=== PATIENT | female | born 1995 | race African-American/Black ===

== ENCOUNTER 2021-05-27 23:57 | Inpatient (IN) ==
[2021-05-27] MEDS ORDERED: LACTATED RINGERS 1,000 ML IV STA (23:59)
[2021-05-27] MEDS ORDERED: LACTATED RINGERS 2,000 ML IV STA (23:59)
[2021-05-27] MEDS ORDERED: DIPHTHERIA/TETANUS ADULT VACCINE 0.5 ML SYRINGE IM ONE (23:59)
[2021-05-28 00:22] LABS: Basophils # 0.1 10*3/uL (0.0-0.2); Basophils % 0.4 % (0.0-0.8); Eosinophils # 0.1 10*3/uL (0.0-0.87); Eosinophils % 0.5 % (0.00-10.9); Hematocrit 43.6 VOL% (35.7-47.0); Immature Granulocytes % 2.1 %; Immature Granulocytes Absolute 0.35 #; Lymphocytes # 3.6 10*3/uL (1.4-4.0); Lymphocytes % 22.2 % (21.3-54.2); Mean Corpuscular HGB Conc 34.4 GM/DL (32-36); Mean Corpuscular Volume 91.2 FL (87-102); Mean Platelet Volume 10.7 FL (9.6-12.0); Monocytes % 5.8 % (1.7-12.7); Platelet Count 239 T/CUMM (130-400); Red Blood Count 4.78 MC/CUMM (3.8-5.5); Red Cell Distribution Width 12.7 % (9.3-17.3); White Blood Count 16.3 T/CUMM (4-12)
[2021-05-28] MEDS ORDERED: MORPHINE 4 MG/1 ML VIAL IV STA (00:32)
[2021-05-28] MEDS ORDERED: ONDANSETRON 4 MG/2 ML VIAL ONE ×2 (00:32→11:16)
[2021-05-28] MEDS ORDERED: ONDANSETRON 4 MG/2 ML VIAL IV ONE (00:32)
[2021-05-28] MEDS ORDERED: MORPHINE 4 MG/1 ML VIAL ONE (00:33)
[2021-05-28 00:48] LABS: PT Patient Result 11.5 SECS (10.5-12.0); Partial Thromboplastin Time 25.4 SECS (23.9-33.8)
[2021-05-28 00:51] LABS: Alanine Aminotransferase 35 U/L (13-56); Albumin 4.1 G/DL (3.4-5.0); Alkaline Phosphatase 79 U/L (45-117); Amylase 85 U/L (25-115); Aspartate Amino Transferase 78 U/L (0-37); Blood Urea Nitrogen 6 MG/DL (7-18); Calcium 8.7 MG/DL (8.5-10.1); Carbon Dioxide 18 MMOL/L (21-32); Glucose 88 MG/DL (74-106); Osmolality,Calculated 275.4 MOS/KG (273-304); Potassium 3.3 MMOL/L (3.5-5.1); Sodium 140 MMOL/L (136-145); Total Protein 7.6 G/DL (6.4-8.2)
[2021-05-28 01:04] LABS: Estimated Glom Filtration Rate 110 ML/MIN
[2021-05-28] MEDS ORDERED: LIDOCAINE 1% 20 ML VIAL INFILTRAT STA (02:18)
[2021-05-28] MEDS ORDERED: HYDROmorphone 2 MG/1 ML VIAL ONE (02:29)
[2021-05-28 03:33] LABS: Bacteria,Urine Occasional /HPF (Few); Bilirubin,Urine Negative (Negative); Blood, Urine Moderate mg/dL (Negative); Glucose,Urine (UA) Negative (Negative); Ketones,Urine 5 mg/dL (Negative); Mucus,Urine Occasional /LPF (Occasional); Nitrite,Urine Negative (Negative); Protein,Urine Negative; RBC,Urine <1 /HPF (0-4); Squamous Epithelial Cell,Urine Occasional /HPF (0-10); Urine Appearance CLEAR (Clear); Urine Color Straw (Yellow); Urine Specific Gravity 1.044 (1.001-1.035); Urine Urobilinogen < 2.0 EU/DL (0.2-1.0)
[2021-05-28 03:33] LABS: Barbiturates Screen,Urine Negative (Negative); Benzodiazepines Screen,Urine Negative (Negative); Cannabinoid Screen,Urine Negative (Negative); Opiate Screen,Urine Positive (Negative); Phencyclidine Screen,Urine Negative (Negative)
[2021-05-28] MEDS ORDERED: ACETAMINOPHEN 325 MG TABLET PO PRN (04:28)
[2021-05-28] MEDS ORDERED: MORPHINE 4 MG/1 ML VIAL IV PRN (04:28)
[2021-05-28] MEDS ORDERED: ONDANSETRON 4 MG/2 ML VIAL IV PRN ×2 (04:28→13:53)
[2021-05-28] MEDS ORDERED: HYDROmorphone 2 MG/1 ML VIAL IV STA (05:00)
[2021-05-28] MEDS: DEXTROSE 5% LACTATED RINGERS 1,000 ML IV SCH ×3 (05:11→15:55)
[2021-05-28] MEDS: PANTOPRAZOLE 40 MG TABLET PO SCH (09:13)
[2021-05-28] MEDS ORDERED: SUCCINYLCHOLINE 200 MG/10 ML VIAL ONE (11:15)
[2021-05-28] MEDS ORDERED: propofoL 200 MG/20 ML VIAL IV ONE (11:16)
[2021-05-28] MEDS ORDERED: LIDOCAINE 2% 5 ML VIAL ONE (11:16)
[2021-05-28] MEDS ORDERED: fentaNYL 100 MCG/2 ML VIAL ONE (11:30)
[2021-05-28] MEDS ORDERED: MIDAZOLAM 2 MG/2 ML VIAL ONE (11:30)
[2021-05-28] MEDS ORDERED: MINERAL OIL/PETROLATUM OPH OINT 3.5 GM TUBE ONE (11:45)
[2021-05-28] MEDS ORDERED: ceFAZolin 1,000 MG VIAL ONE (11:55)
[2021-05-28] MEDS ORDERED: ceFAZolin 2,000 MG/50 ML DUPLEX IV ONE (12:00)
[2021-05-28] MEDS ORDERED: ACETAMINOPHEN INJ 1,000 MG/100 ML VIAL IV ONE (12:02)
[2021-05-28] MEDS ORDERED: DEXAMETHASONE 4 MG/1 ML VIAL ONE ×2 (12:04→12:05)
[2021-05-28] MEDS ORDERED: NEOSTIGMINE 10 MG/10 ML VIAL ONE (13:16)
[2021-05-28] MEDS ORDERED: GLYCOPYRROLATE 0.4 MG/2 ML VIAL ONE (13:16)
[2021-05-28] MEDS ORDERED: MORPHINE 10 MG/1 ML VIAL IV PRN (13:35)
[2021-05-28] MEDS ORDERED: SEVOFLURANE 1 UNIT/15 MINUTE INH ONE (13:37)
[2021-05-28] MEDS ORDERED: HYDROmorphone 2 MG/1 ML VIAL IV PRN (13:53)
[2021-05-29] MEDS: DEXTROSE 5% LACTATED RINGERS 1,000 ML IV SCH ×3 (00:20→15:23)
[2021-05-29] MEDS: MORPHINE 2 MG/1 ML SYRINGE IV PRN ×4 (03:47→20:56)
[2021-05-29 05:01] LABS: Basophils % 0.1 % (0.0-0.8); Hemoglobin 9.6 GM/DL (12.0-16.0); Immature Granulocytes % 0.5 %; Immature Granulocytes Absolute 0.06 #; Lymphocytes # 1.2 10*3/uL (1.4-4.0); Lymphocytes % 8.7 % (21.3-54.2); Mean Corpuscular HGB Conc 34.3 GM/DL (32-36); Mean Corpuscular Volume 92.7 FL (87-102); Mean Platelet Volume 11.1 FL (9.6-12.0); Monocytes % 9.6 % (1.7-12.7); Neutrophils % 81.1 % (38.7-73.9); Platelet Count 143 T/CUMM (130-400); Red Blood Count 3.02 MC/CUMM (3.8-5.5); Red Cell Distribution Width 12.9 % (9.3-17.3); White Blood Count 13.2 T/CUMM (4-12)
[2021-05-29 05:20] LABS: Hypochromasia 1+; Microcytosis 1+
[2021-05-29 07:29] LABS: Calcium 7.8 MG/DL (8.5-10.1); Osmolality,Calculated 282.3 MOS/KG (273-304); Potassium 3.5 MMOL/L (3.5-5.1)
[2021-05-29] MEDS: PANTOPRAZOLE 40 MG TABLET PO SCH (09:02)
[2021-05-29] MEDS ORDERED: propofoL 200 MG/20 ML VIAL IV ONE (11:38)
[2021-05-29] MEDS ORDERED: DEXAMETHASONE 4 MG/1 ML VIAL ONE (11:39)
[2021-05-29] MEDS ORDERED: SUCCINYLCHOLINE 200 MG/10 ML VIAL ONE (11:39)
[2021-05-29] MEDS ORDERED: ONDANSETRON 4 MG/2 ML VIAL ONE (11:39)
[2021-05-29] MEDS ORDERED: ROCURONIUM 50 MG/5 ML VIAL IV ONE (11:39)
[2021-05-29] MEDS ORDERED: MIDAZOLAM 2 MG/2 ML VIAL ONE (11:39)
[2021-05-29] MEDS ORDERED: LIDOCAINE 2% 5 ML VIAL ONE ×2 (11:39→13:17)
[2021-05-29] MEDS ORDERED: SEVOFLURANE 1 UNIT/15 MINUTE INH ONE (11:39)
[2021-05-29] MEDS ORDERED: fentaNYL 100 MCG/2 ML VIAL ONE (11:39)
[2021-05-29] MEDS ORDERED: GENTAMICIN 80 MG/2 ML VIAL ONE (12:48)
[2021-05-29] MEDS ORDERED: ACETAMINOPHEN INJ 1,000 MG/100 ML VIAL IV ONE (13:04)
[2021-05-29] MEDS ORDERED: GLYCOPYRROLATE 0.4 MG/2 ML VIAL ONE (13:24)
[2021-05-29] MEDS ORDERED: NEOSTIGMINE 10 MG/10 ML VIAL ONE (13:24)
[2021-05-29] MEDS ORDERED: HYDROmorphone 2 MG/1 ML VIAL ONE (13:32)
[2021-05-29] MEDS ORDERED: ONDANSETRON 4 MG/2 ML VIAL IV PRN (14:13)
[2021-05-29] MEDS ORDERED: HYDROmorphone 2 MG/1 ML VIAL IV PRN (14:13)
[2021-05-30] MEDS: DEXTROSE 5% LACTATED RINGERS 1,000 ML IV SCH ×3 (01:05→14:44)
[2021-05-30] MEDS: MORPHINE 2 MG/1 ML SYRINGE IV PRN ×2 (03:47→11:46)
[2021-05-30] MEDS: PANTOPRAZOLE 40 MG TABLET PO SCH (09:03)
[2021-05-31] MEDS: DEXTROSE 5% LACTATED RINGERS 1,000 ML IV SCH ×3 (00:21→14:35)
[2021-05-31] MEDS: PANTOPRAZOLE 40 MG TABLET PO SCH (09:00)
[2021-05-31 09:39] LABS: Basophils % 0.3 % (0.0-0.8); Eosinophils # 0.3 10*3/uL (0.0-0.87); Eosinophils % 3.4 % (0.00-10.9); Hematocrit 28.9 VOL% (35.7-47.0); Hemoglobin 9.6 GM/DL (12.0-16.0); Immature Granulocytes % 0.5 %; Immature Granulocytes Absolute 0.05 #; Lymphocytes # 3.6 10*3/uL (1.4-4.0); Lymphocytes % 36.6 % (21.3-54.2); Mean Corpuscular HGB Conc 33.2 GM/DL (32-36); Mean Corpuscular Volume 93.5 FL (87-102); Mean Platelet Volume 10.5 FL (9.6-12.0); Monocytes % 6.5 % (1.7-12.7); Neutrophils % 52.7 % (38.7-73.9); Platelet Count 159 T/CUMM (130-400); Red Blood Count 3.09 MC/CUMM (3.8-5.5); Red Cell Distribution Width 12.7 % (9.3-17.3); White Blood Count 9.7 T/CUMM (4-12)
[2021-05-31 10:02] LABS: Eosinophils 3 % (0-10); Hypochromasia 1+; Lymphocytes 26 % (20-55); Microcytosis 1+; Platelet Estimate Adequate; Segmented Neutrophils 64 % (50-85); Total Cells Counted 100
[2021-05-31] MEDS: MORPHINE 2 MG/1 ML SYRINGE IV PRN (16:29)
[2021-06-01] MEDS: MORPHINE 2 MG/1 ML SYRINGE IV PRN (04:12)
[2021-06-01] MEDS: DEXTROSE 5% LACTATED RINGERS 1,000 ML IV SCH ×4 (08:14→19:51)
[2021-06-01] MEDS: PANTOPRAZOLE 40 MG TABLET PO SCH (08:55)
[2021-06-01] MEDS: FONDAPARINUX 2.5 MG/0.5 ML SYRINGE SUBCUT SCH (08:55)
[2021-06-02] MEDS: MORPHINE 2 MG/1 ML SYRINGE IV PRN (00:39)
[2021-06-02] MEDS: DEXTROSE 5% LACTATED RINGERS 1,000 ML IV SCH ×2 (04:47→19:07)
[2021-06-02] MEDS: PANTOPRAZOLE 40 MG TABLET PO SCH (09:13)
[2021-06-02] MEDS: FONDAPARINUX 2.5 MG/0.5 ML SYRINGE SUBCUT SCH (09:13)
[2021-06-03] MEDS: FONDAPARINUX 2.5 MG/0.5 ML SYRINGE SUBCUT SCH (09:19)
[2021-06-03] MEDS: PANTOPRAZOLE 40 MG TABLET PO SCH (09:19)
[2021-06-03] MEDS ORDERED: NICOTINE 21 MG/24 HR PATCH TRANSDERM PRN (13:34)
[2021-06-04] MEDS: FONDAPARINUX 2.5 MG/0.5 ML SYRINGE SUBCUT SCH (09:47)
[2021-06-04] MEDS: PANTOPRAZOLE 40 MG TABLET PO SCH (09:47)
[2021-06-04] MEDS ORDERED: BISACODYL 10 MG SUPP RECTAL PRN (12:14)
[2021-06-04] MEDS ORDERED: POLYETHYLENE GLYCOL POWDER 17 GM PACK PO PRN (12:20)
[2021-06-05] MEDS: FONDAPARINUX 2.5 MG/0.5 ML SYRINGE SUBCUT SCH (08:18)
[2021-06-05] MEDS: PANTOPRAZOLE 40 MG TABLET PO SCH (08:18)
[2021-06-05 11:05] VITALS: BP 99/52
== END 2021-06-05 14:48 | disposition home or self-care (01) | DRG 493 ==
LOC: N.ED 23:57 → N.EDINP 05-28 04:28 → N.4E 05-28 09:13 → N.3E 05-28 11:39
PROVIDERS: ADMIT Surgery; ATTEND Surgery